=== PATIENT | male | born 1980 | race American Indian/Alaskan Native ===

== ENCOUNTER 2021-12-26 22:06 | Emergency (ER) | payer SELFPAY ==
[2021-12-26] MEDS ORDERED: ASPIRIN 81 MG TAB CHEW PO ONE (22:26)
--- NOTE | 2021-12-26 22:30 | Emergency Department Report ---
ED General Adult HPI - General Chief complaint: Chest Pain Stated complaint: CHEST PAIN Time Seen by Provider: 12/26/21 22:17 Source: patient Mode of arrival: Ambulatory Limitations: No Limitations - History of Present Illness Initial comments: Patient is 41 years old male with no significant past medical history. Patient brought to the emergency room from [facility]. Patient stated that he is traveling from [place] connecting [place] going to [facility]. He stated that he started having left-sided chest pain while he was walking to the aircraft. He describes his pain as sharp with no radiation initially was very intense but now is better. The pain increases with inspiration. Patient denies any shortness of breath, cough, fever or chills. Patient stated that he is fully vaccinated against COVID-19 and he had a negative test before he boarded the plane. - Related Data Allergies Allergy/AdvReac Type Severity Reaction Status Date / Time No Known Allergies Allergy Verified 12/27/21 03:03 ED Review of Systems ROS: Stated complaint: CHEST PAIN Other details as noted in HPI Comment: All other systems reviewed and negative Constitutional: denies: chills, fever Respiratory: denies: cough, shortness of breath, SOB with exertion, SOB at rest Cardiovascular: chest pain Gastrointestinal: denies: abdominal pain, nausea, vomiting, diarrhea, constipation, hematemesis, melena, hematochezia Musculoskeletal: denies: back pain Neurological: denies: headache, weakness, numbness, paresthesias, confusion, abnormal gait ED Past Medical Hx - Past Medical History Previous Medical History?: No - Surgical History Past Surgical History?: No ED Physical Exam - General Limitations: No Limitations General appearance: alert, in no apparent distress - Head Head exam: Present: atraumatic, normocephalic, normal inspection - Eye Eye exam: Present: normal appearance, PERRL - ENT ENT exam: Present: normal exam, normal orophraynx, mucous membranes moist - Neck Neck exam: Present: normal inspection, full ROM. Absent: tenderness, meningismus - Respiratory Respiratory exam: Present: normal lung sounds bilaterally - Cardiovascular Cardiovascular Exam: Present: regular rate, normal rhythm, normal heart sounds - GI/Abdominal GI/Abdominal exam: Present: soft, normal bowel sounds. Absent: distended, tenderness, guarding, rebound, rigid, organomegaly, mass, bruit, pulsatile mass, hernia - Extremities Exam Extremities exam: Present: normal inspection, full ROM, normal capillary refill. Absent: tenderness, pedal edema, joint swelling, calf tenderness - Back Exam Back exam: Present: normal inspection, full ROM. Absent: CVA tenderness (R), CVA tenderness (L) - Neurological Exam Neurological exam: Present: alert, oriented X3, CN II-XII intact, reflexes normal. Absent: motor sensory deficit - Psychiatric Psychiatric exam: Present: normal mood - Skin Skin exam: Present: warm, intact, normal color ED Course Vital Signs 12/26/21 12/27/21 12/27/21 22:23 02:51 02:54 Temperature 97.9 F Pulse Rate 64 88 81 Respiratory 16 11 L 16 Rate Blood Pressure 141/82 103/62 [Right] O2 Sat by Pulse 100 97 100 Oximetry ED Medical Decision Making - Lab Data Result diagrams: 12/26/21 22:33 12/26/21 22:33 - EKG Data -: EKG Interpreted by Nc EKG shows normal: sinus rhythm Rate: normal - EKG Data Interpretation: no acute changes - Radiology Data Radiology results: report reviewed - Medical Decision Making Patient is 41 years old male with no significant past medical history. Patient brought to the emergency room from [facility]. Patient stated that he is traveling from [place] connecting [place] going to [facility]. He stated that he started having left-sided chest pain while he was walking to the aircraft. He describes his pain as sharp with no radiation initially was very intense but now is better. The pain increases with inspiration. Patient denies any shortness of breath, cough, fever or chills. Patient stated that he is fully vaccinated against COVID-19 and he had a negative test before he boarded the plane. EKG is unremarkable. Labs reviewed and is unremarkable including a negative troponin x2 and a negative D-dimer. Chest x-ray is negative for acute finding. Patient chest pain is atypical however patient strongly advised to follow-up with his primary care physician in the next 2 to 3 days for outpatient cardiac work-up and to return to the ER or go to another ER if he develop any new symptoms. Critical care attestation.: If time is entered above; I have spent that time in minutes in the direct care o f this critically ill patient, excluding procedure time. ED Disposition Clinical Impression: Acute chest pain, Pleurisy Disposition: HOME / SELF CARE / HOMELESS Is pt being admited?: No Condition: Stable Instructions: Chest Pain (ED), Nonspecific Chest Pain, Adult, Pleurisy Referrals: PRIMARY CARE,MD [Primary Care Provider] - 3-5 Days
--- NOTE | 2021-12-26 22:56 | XRay Report ---
CHEST PA AND LATERAL VIEWS INDICATION: Chest Pain. COMPARISON: None. FINDINGS: Support devices: None. Heart: Within normal limits. Lungs/Pleura: No acute pulmonary or pleural findings. There is a bullous disease in the right upper h emithorax. IMPRESSION: 1. No acute findings. Signer Name: Abundio Wheat MD Signed: 12/26/2021 10:52 PM Workstation Name: [id number]
[2021-12-26 23:22] LABS: Hematocrit 41.2 % (35.5-45.6); Hemoglobin 14.1 gm/dl (11.8-15.2); Mean Corpuscular HGB Conc 34 % (32-34); Mean Corpuscular Volume 90 fl (84-94); Platelet Count 313 K/mm3 (140-440); Red Blood Count 4.58 M/mm3 (3.65-5.03); Red Cell Distribution Width 14.4 % (13.2-15.2)
[2021-12-26 23:35] LABS: INR 0.88 (0.87-1.13)
[2021-12-27 00:34] LABS: BUN/Creatinine Ratio 11; Blood Urea Nitrogen 12 mg/dL (9-20); Calcium 9.9 mg/dL (8.4-10.2); Hemolysis Index 13
[2021-12-27 00:59] LABS: Platelet Estimate Consistent w Auto; RBC Morphology Normal; Total Cells Counted 100
[2021-12-27 04:40] VITALS: BP 121/85
--- NOTE | 2021-12-29 13:07 | Electrocardiograph Report ---
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
== END 2021-12-27 04:45 | disposition home or self-care (01) ==
LOC: ED 22:06
DX: R07.89 Other chest pain (principal)
CPT/HCPCS: 36415; 71046; 80048; 83690; 84484; 85007; 85025; 85379; 85610; 85730; 93005; 93010; 99283; 99284